=== PATIENT | female | born 1985 | race Caucasian/White ===

== ENCOUNTER 2016-10-24 13:35 | Emergency (ER) | payer MEDICAID ==
[2016-10-24 14:00] VITALS: BP 123/88
--- NOTE | 2016-10-24 14:06 | ER Document Report ---
ED Medical Screen (RME) - General Stated Complaint: TOE PAIN Notes: 31 yo female c/o left pinky toe pain x 2 days. hit toe on chair. TRAVEL OUTSIDE OF THE [place] IN LAST 30 DAYS: No - Related Data Allergies/Adverse Reactions: cefaclor [From Ceclor] Allergy (Severe, Verified 08/07/15 16:43) Hives codeine [Codeine] Allergy (Verified 09/03/15 21:10) Past Medical History Pulmonary Medical History: Reports: Hx Bronchitis Past Surgical History: Reports: Hx Cholecystectomy, Hx Tubal Ligation - Immunizations Immunizations up to date: Yes Hx Diphtheria, Pertussis, Tetanus Vaccination: Yes - Jun 2014 Physical Exam - Vital signs Vitals: Temp Pulse Resp BP Pulse Ox 98.3 F 97 18 123/88 H 99 10/24/16 13:58 10/24/16 13:58 10/24/16 13:58 10/24/16 13:58 10/24/16 13:58 Course - Vital Signs Vital signs: Temp Pulse Resp BP Pulse Ox 98.3 F 97 18 123/88 H 99 10/24/16 13:58 10/24/16 13:58 10/24/16 13:58 10/24/16 13:58 10/24/16 13:58
--- NOTE | 2016-10-24 15:31 | ER Document Report ---
ED Extremity Problem, Lower - General Chief Complaint: Toe Injury Stated Complaint: TOE PAIN Information source: Patient Notes: Patient 2 days ago hit her left pinky toe on the edge of the chair. She has pain to that location. Denies pain to any other location. TRAVEL OUTSIDE OF THE [place] IN LAST 30 DAYS: No - HPI Patient complains to provider of: Pain Location: Foot Occurred: Other - See above Where: Home Onset/Duration: Sudden Quality of pain: Achy Severity: Mild Pain Level: 1 Context: Other - See above Recent injury: Yes Exacerbated by: Movement Relieved by: Nothing - Related Data Allergies/Adverse Reactions: cefaclor [From Ceclor] Allergy (Severe, Verified 10/24/16 14:06) Hives codeine [Codeine] Allergy (Verified 10/24/16 14:06) Past Medical History - General Information source: Patient - Social History Smoking Status: Current Every Day Smoker Chew tobacco use (# tins/day): No Smoking Education Provided: No Frequency of alcohol use: None Family History: CVA, DM, Malignancy Patient has suicidal ideation: No Patient has homicidal ideation: No Pulmonary Medical History: Reports: Hx Bronchitis Renal/ Medical History: Denies: Hx Peritoneal Dialysis Past Surgical History: Reports: Hx Cholecystectomy, Hx Tubal Ligation - Immunizations Immunizations up to date: Yes Hx Diphtheria, Pertussis, Tetanus Vaccination: Yes - Jun 2014 Physical Exam - Vital signs Vitals: Temp Pulse Resp BP Pulse Ox 98.3 F 97 18 123/88 H 99 10/24/16 13:58 10/24/16 13:58 10/24/16 13:58 10/24/16 13:58 10/24/16 13:58 Notes: Reviewed vital signs and nursing note as charted by RN. EXT: Tenderness and mild swelling to the left pinky toe. Neurovascularly intact distally. Course - Re-evaluation Re-evalutation: 10/24/16 15:29 X-ray as recorded. We will provide a postop hard sole shoe with crutches and orthopedic follow-up. - Vital Signs Vital signs: Temp Pulse Resp BP Pulse Ox 98.3 F 97 18 123/88 H 99 10/24/16 13:58 10/24/16 13:58 10/24/16 13:58 10/24/16 13:58 10/24/16 13:58 Discharge - Discharge Clinical Impression: Fracture of phalanx of toe of left foot Qualifiers: Encounter type: initial encounter Toe: lesser toe Fracture type: closed Phalanx : unspecified phalanx Fracture alignment: nondisplaced Qualified Code(s): S92.505A - Nondisplaced unspecified fracture of left lesser toe(s), initial encounter for closed fracture Condition: Good Disposition: HOME, SELF-CARE Additional Instructions: Come back immediately for any increased pain, swelling, weakness or numbness, or any other acute problems. Prescriptions: Hydrocodone/Acetaminophen [Allen 5-325 Tablet] 1 each PO Q6 PRN #12 tablet PRN Reason: For Pain Referrals: LEYLA CARTER MD [ACTIVE STAFF] - Follow up as needed
== END 2016-10-24 16:00 | disposition home or self-care (01) ==
LOC: ER 13:35
DX: S92.515A Nondisplaced fracture of proximal phalanx of left lesser toe(s), initial encounter for closed fracture (principal); W22.03XA Walked into furniture, initial encounter; Y92.000 Kitchen of unspecified non-institutional (private) residence as the place of occurrence of the external cause; F17.200 Nicotine dependence, unspecified, uncomplicated; Z88.1 Allergy status to other antibiotic agents; Z88.5 Allergy status to narcotic agent
CPT/HCPCS: 99283